=== PATIENT | female | born 1995 | race Caucasian/White ===

== ENCOUNTER 2017-05-06 10:40 | Inpatient (IN) ==
[2017-05-06] MEDS ORDERED: BUTORPHANOL 2 MG/ML VIAL IV PRN (11:06)
[2017-05-06] MEDS ORDERED: LACTATED RINGERS 1,000 ML IV ONE (11:11)
[2017-05-06] MEDS ORDERED: PROMETHAZINE 25 MG/1 ML VIAL IM ONE (11:11)
[2017-05-06] MEDS ORDERED: ONDANSETRON 4 MG/2 ML VIAL IV ONE (11:11)
[2017-05-06] MEDS ORDERED: CITRIC ACID/SODIUM CITRATE 30 ML UDCUP PO ONE (11:11)
[2017-05-06] MEDS ORDERED: diphenhydrAMINE 50 MG/1 ML VIAL IV PRN ×2 (11:11)
[2017-05-06] MEDS ORDERED: ePHEDrine 50 MG/ML AMP IV PRN (11:11)
[2017-05-06] MEDS ORDERED: FAMOTIDINE 20 MG/2 ML VIAL IV ONE (11:11)
[2017-05-06] MEDS ORDERED: hydrOXYzine HCL 25 MG/1 ML VIAL IM PRN (11:11)
[2017-05-06] MEDS ORDERED: LACTATED RINGERS 1,000 ML IV SCH (11:30)
[2017-05-06] MEDS ORDERED: fentaNYL 2 MCG/ROPIV 0.2% EPID 150 ML EPIDURAL SCH (11:30)
[2017-05-06] MEDS ORDERED: OXYTOCIN/LR 20 UNIT/1,000 ML BAG IV SCH (11:30)
[2017-05-06 12:01] LABS: Basophils % 0.4 % (0.0-0.8); Hematocrit 29.7 VOL% (35.7-47.0); Hemoglobin 10.2 GM/DL (12.0-16.0); Immature Granulocytes % 0.7 %; Immature Granulocytes Absolute 0.07 #; Lymphocytes # 1.2 10*3/uL (1.4-4.0); Lymphocytes % 11.9 % (21.3-54.2); Mean Corpuscular HGB Conc 34.3 GM/DL (32-36); Mean Corpuscular Hemoglobin 29 PG (27-34); Mean Corpuscular Volume 83.2 FL (87-102); Mean Platelet Volume 12.5 FL (9.6-12.0); Monocytes # 0.4 10*3/uL (0.11-0.8); Neutrophils # 8.4 10*3/uL (1.4-7.4); Platelet Count 199 T/CUMM (130-400); Red Blood Count 3.57 MC/CUMM (3.8-5.5); Red Cell Distribution Width 14.4 % (9.3-17.3); White Blood Count 10.2 T/CUMM (4-12)
[2017-05-06 12:36] LABS: Alanine Aminotransferase 18 U/L (13-56); Albumin 2.8 G/DL (3.4-5.0); Alkaline Phosphatase 148 U/L (45-117); Aspartate Amino Transferase 20 U/L (0-37); Bilirubin,Total < 0.39 MG/DL (0.2-1.0); Blood Urea Nitrogen 12 MG/DL (7-18); Calcium 9.1 MG/DL (8.5-10.1); Glucose 124 MG/DL (74-106); Osmolality,Calculated 268.2 MOS/KG (273-304); Sodium 134 MMOL/L (136-145); Total Protein 7.4 G/DL (6.4-8.3)
[2017-05-06 13:27] LABS: Apearance,Urine CLEAR (Clear); Bacteria,Urine Occasional /HPF (Few); Bilirubin,Urine Negative (Negative); Blood, Urine Negative (Negative); Glucose,Urine (UA) Negative (Negative); Hyaline Casts,Urine 1 /LPF (0-3); Ketones,Urine Negative (Negative); Nitrite,Urine Negative (Negative); Protein,Urine Negative; RBC,Urine <1 /HPF (0-4); Urine Color Straw (Yellow); Urine Specific Gravity 1.004 (1.001-1.035); Urine Urobilinogen < 2.0 EU/DL (0.2-1.0); WBC,Urine 3 /HPF (0-6)
[2017-05-06] MEDS: ONDANSETRON 4 MG/2 ML VIAL IV PRN ×2 (13:57→20:34)
[2017-05-06] MEDS ORDERED: BISACODYL 10 MG SUPP RECTAL PRN (17:06)
[2017-05-06] MEDS ORDERED: BENZOCAINE 20%/MENTHOL 0.5% SPRAY 56 GM CAN TOP PRN (17:06)
[2017-05-06] MEDS ORDERED: DIPH/TET/ACEL PERT BOOSTER VACCINE 0.5 ML VIAL IM ONE (17:06)
[2017-05-06] MEDS ORDERED: oxyCODONE/ACETAMINOPHEN 5-325 MG TABLET PO PRN (17:06)
[2017-05-06] MEDS ORDERED: ACETAMINOPHEN 325 MG TABLET PO PRN (17:06)
[2017-05-06] MEDS ORDERED: WITCH HAZEL PADS 100/JAR TOP PRN (17:06)
[2017-05-06] MEDS ORDERED: HYDROCORTISONE 2.5% RECTAL CREAM 30 GM TUBE TOP PRN (17:06)
[2017-05-06] MEDS ORDERED: LANOLIN 50% CREAM 0.3 OZ TUBE TOP PRN (17:06)
[2017-05-06] MEDS ORDERED: RHO(D) IMMUNE GLOBULIN 300 MCG SYRINGE IM ONE (17:06)
[2017-05-06] MEDS ORDERED: ONDANSETRON 4 MG/2 ML VIAL IV PRN (17:06)
[2017-05-06] MEDS: oxyCODONE/ACETAMINOPHEN 5-325 MG TABLET PO PRN (18:41)
[2017-05-06] MEDS ORDERED: OXYTOCIN/LR 20 UNIT/1,000 ML BAG IV ONE (20:53)
[2017-05-06] MEDS: DOCUSATE SODIUM 100 MG CAPSULE PO SCH (21:26)
[2017-05-06] MEDS: IBUPROFEN 800 MG TABLET PO PRN (22:21)
[2017-05-07 06:11] LABS: Basophils % 0.3 % (0.0-0.8); Eosinophils # 0.1 10*3/uL (0.0-0.87); Eosinophils % 0.6 % (0.00-10.9); Hematocrit 27.9 VOL% (35.7-47.0); Hemoglobin 9.6 GM/DL (12.0-16.0); Immature Granulocytes % 0.4 %; Immature Granulocytes Absolute 0.05 #; Lymphocytes % 17.6 % (21.3-54.2); Mean Corpuscular HGB Conc 34.4 GM/DL (32-36); Mean Corpuscular Hemoglobin 29 PG (27-34); Mean Corpuscular Volume 82.8 FL (87-102); Mean Platelet Volume 12.8 FL (9.6-12.0); Monocytes # 0.8 10*3/uL (0.11-0.8); Monocytes % 6.8 % (1.7-12.7); Neutrophils # 8.5 10*3/uL (1.4-7.4); Neutrophils % 74.3 % (38.7-73.9); Platelet Count 166 T/CUMM (130-400); Red Blood Count 3.37 MC/CUMM (3.8-5.5); Red Cell Distribution Width 14.4 % (9.3-17.3); White Blood Count 11.4 T/CUMM (4-12)
[2017-05-07] MEDS: IBUPROFEN 800 MG TABLET PO PRN ×3 (06:13→20:28)
[2017-05-07] MEDS: DOCUSATE SODIUM 100 MG CAPSULE PO SCH ×2 (08:44→22:11)
[2017-05-07] MEDS: oxyCODONE/ACETAMINOPHEN 5-325 MG TABLET PO PRN ×2 (10:28→19:27)
[2017-05-07] MEDS ORDERED: ONDANSETRON 4 MG TABLET PO PRN (15:02)
[2017-05-08 07:20] VITALS: BP 110/70
[2017-05-08] MEDS ORDERED: INFLUENZA VIRUS VACCINE 0.5 ML SYRINGE IM ONE (08:00)
[2017-05-08] MEDS: DOCUSATE SODIUM 100 MG CAPSULE PO SCH (08:44)
[2017-05-08] MEDS: IBUPROFEN 800 MG TABLET PO PRN (08:44)
== END 2017-05-08 13:00 | disposition home or self-care (01) | DRG 560 ==
LOC: N.LDOUT 10:40 → N.LD 10:43 → N.OB 20:15
PROVIDERS: ADMIT Obstetrics & Gynecology; ATTEND Specialist